=== PATIENT | male | born 1965 | race Caucasian/White ===

== ENCOUNTER → 2021-07-31 | Outpatient (CLI) | payer OTHER ==
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
--- NOTE | 2021-07-31 11:41 | Diagnostic Imaging Report ---
PROCEDURE: MR imaging cervical spine without contrast. TECHNIQUE: Multiplanar, multisequence MR imaging of the cervical spine was performed without contrast. INDICATION: Neck pain. COMPARISON: None. FINDINGS: Grade 1 anterolisthesis of C2 on C3. Alignment is otherwise normal and vertebral body heights preserved. Normal bone marrow signal. No abnormal signal in the cervical spinal cord. Visualized paravertebral soft tissues are unremarkable. Uncovertebral and facet arthropathy result in moderate right neural foraminal narrowing. Mild spinal canal narrowing. C3-C4: Disc osteophyte complex results in mild spinal canal and bilateral neural foraminal narrowing. C4-C5: Uncovertebral and facet arthropathy result in severe left neural foraminal narrowing. Tiny disc protrusion results in only mild spinal canal narrowing. C5-C6: Small central disc protrusion results in mild spinal canal narrowing. No neural foraminal narrowing. C6-C7: Annular disc bulge and facet arthropathy result in moderate bilateral neural foraminal narrowing. Mild spinal canal narrowing. C7-T1: No spinal canal or neural foraminal narrowing. IMPRESSION: 1. Spondylotic changes result in no high-grade spinal canal stenosis. No abnormal signal in the cervical spinal cord. 2. Scattered high-grade neural foraminal narrowing detailed above level by level. Dictated by: Dictated on workstation # [id number]
== END ==
LOC: RAD 08:00
PROVIDERS: ATTEND Physician Assistant
DX: S00.05XA Superficial foreign body of scalp, initial encounter (principal); M50.30 Other cervical disc degeneration, unspecified cervical region; G56.93 Unspecified mononeuropathy of bilateral upper limbs; M47.812 Spondylosis without myelopathy or radiculopathy, cervical region; M48.02 Spinal stenosis, cervical region; M25.78 Osteophyte, vertebrae; M50.222 Other cervical disc displacement at C5-C6 level; M43.12 Spondylolisthesis, cervical region
CPT/HCPCS: 70250; 72141

== ENCOUNTER 2022-05-10 19:57 | Inpatient (IN) | payer OTHER ==
[~2022-05-10] VITALS: Ht 180 cm; Wt 102.2 kg
[2022-05-10] MEDS ORDERED: TRAM50TA3 (20:05)
[2022-05-10] MEDS ORDERED: LISI1TAB44 (20:05)
[2022-05-10] MEDS ORDERED: NITROGLYCERIN 2% OINT 1 GM UNIT DOSE PACKET TOP STA (20:07)
[2022-05-10] MEDS ORDERED: FAMOTIDINE 20 MG (PEPCID) TABLET PO STA (20:07)
--- NOTE | 2022-05-10 20:11 | ED Chest Pain ---
General Chief Complaint: Chest Pain Stated Complaint: CHEST PAIN Source: patient Exam Limitations: no limitations History of Present Illness Date Seen by Provider: May 10, 2022 Time Seen by Provider: 20:00 Initial Comments 56-year-old male with past medical history of hypertension and smoking coming in due to chest pain. Started several days ago, has been intermittent, constant really since this morning. Right now it is very mild, 2 out of 10, burning sensation. Does not radiate anywhere. Mild dyspnea associated with it. Has had a cough as well which is new. Has had some times of chills and sweating with it. Denies any nausea, vomiting, weakness, numbness, abdominal pain, headache, vision changes, or any other concerns. Has never really had pain like this before. Denies any cardiac history. Denies any history of DVT or PE, lowe r extremity swelling or pain, hormone use, recent surgery, recent long travel Allergies and Home Medications Allergies Coded Allergies: No Known Drug Allergies (Unverified , 05/10/22) Patient Home Medication List Home Medication List Reviewed: Yes Lisinopril/Hydrochlorothiazide (Lisinopril-Hctz 10-12.5 mg Tab) 10 Mg-12.5 Mg Tablet, (Reported) Entered as Reported by: ARCHIE OSORIO on 05/10/222004 Last Action: New Order Tramadol HCl (Tramadol HCl) 50 Mg Tablet, (Reported) Entered as Reported by: ARCHIE OSORIO on 05/10/222004 Last Action: New Order Review of Systems Review of Systems Constitutional: No fever EENTM: No Symptoms Reported Respiratory: See HPI Cardiovascular: See HPI Gastrointestinal: No Symptoms Reported Genitourinary: No Symptoms Reported Musculoskeletal: no symptoms reported Skin: no symptoms reported Psychiatric/Neurological: No Symptoms Reported Endocrine: No Symptoms Reported Hematologic/Lymphatic: No Symptoms Reported All Other Systems Reviewed Negative Unless Noted: Yes Past Tavxcxm-Aslrvb-Bkcjzt Hx Patient Social History Tobacco Use?: Yes Substance use?: No Alcohol Use?: No Pt feels they are or have been: No Immunizations Up To Date First/Initial COVID19 Vaccinat: x2 Past Medical History Surgery/Hospitalization HX: htn Surgeries: No Physical Exam Vital Signs Vital Signs - First Documented 05/10/22 20:06 Temp 36.4 Pulse 73 Resp 16 B/P (MAP) 170/122 (138) Pulse Ox 100 O2 Delivery Room Air Capillary Refill : Height, Weight, BMI Height: '" Weight: lbs. oz. kg; BMI Method: General Appearance: No Apparent Distress, WD/WN HEENT: PERRL/EOMI, Normal ENT Inspection, Pharynx Normal Neck: Full Range of Motion, Normal Inspection, Non Tender, Supple Respiratory: Chest Non Tender, Lungs Clear, Normal Breath Sounds, No Accessory Muscle Use, No Respiratory Distress Cardiovascular: Regular Rate, Rhythm, No Edema, Normal Peripheral Pulses Gastrointestinal: Normal Bowel Sounds, Non Tender, Soft; No Distended, No Guarding Extremity: Normal Capillary Refill, Normal Inspection, Normal Range of Motion, Non Tender, No Calf Tenderness, No Pedal Edema Neurologic/Psychiatric: Alert, No Motor/Sensory Deficits, Normal Mood/Affect Skin: Normal Color, Warm/Dry Lymphatic: No Adenopathy Progress/Results/Core Measures Results/Orders Lab Results Laboratory Tests Test 05/10/22 20:15 Range/Units White Blood Count 9.9 4.3-11.0 10^3/uL Red Blood Count 5.75 H 4.30-5.52 10^6/uL Hemoglobin 17.3 13.3-17.7 g/dL Hematocrit 50 40-54 % Mean Corpuscular Volume 87 80-99 fL Mean Corpuscular Hemoglobin 30 25-34 pg Mean Corpuscular Hemoglobin Concent 35 32-36 g/dL Red Cell Distribution Width 12.7 10.0-14.5 % Platelet Count 286 130-400 10^3/uL Mean Platelet Volume 11.2 9.0-12.2 fL Immature Granulocyte % (Auto) 1 % Neutrophils (%) (Auto) 55 42-75 % Lymphocytes (%) (Auto) 29 12-44 % Monocytes (%) (Auto) 11 0-12 % Eosinophils (%) (Auto) 4 0-10 % Basophils (%) (Auto) 1 0-10 % Neutrophils # (Auto) 5.4 1.8-7.8 10^3/uL Lymphocytes # (Auto) 2.9 1.0-4.0 10^3/uL Monocytes # (Auto) 1.1 H 0.0-1.0 10^3/uL Eosinophils # (Auto) 0.4 H 0.0-0.3 10^3/uL Basophils # (Auto) 0.1 0.0-0.1 10^3/uL Immature Granulocyte # (Auto) 0.1 0.0-0.1 10^3/uL Prothrombin Time 12.3 12.2-14.7 SEC INR Comment 0.9 0.8-1.4 Activated Partial Thromboplast Time 31 24-35 SEC Sodium Level 138 135-145 MMOL/L Potassium Level 4.4 3.6-5.0 MMOL/L Chloride Level 103 98-107 MMOL/L Carbon Dioxide Level 25 21-32 MMOL/L Anion Gap 10 5-14 MMOL/L Blood Urea Nitrogen 18 7-18 MG/DL Creatinine 1.21 0.60-1.30 MG/DL Estimat Glomerular Filtration Rate 69 BUN/Creatinine Ratio 15 Glucose Level 123 H 70-105 MG/DL Calcium Level 9.7 8.5-10.1 MG/DL Corrected Calcium 9.4 8.5-10.1 MG/DL Magnesium Level 2.0 1.6-2.4 MG/DL Total Bilirubin 0.4 0.1-1.0 MG/DL Aspartate Amino Transf (AST/SGOT) 30 5-34 U/L Alanine Aminotransferase (ALT/SGPT) 28 0-55 U/L Alkaline Phosphatase 76 40-136 U/L Troponin I 0.288 H <0.028 NG/ML Total Protein 8.0 6.4-8.2 GM/DL Albumin 4.4 3.2-4.5 GM/DL Lipase 34 8-78 U/L Influenza Type A (RT-PCR) Not Detected Not Detecte Influenza Type B (RT-PCR) Not Detected Not Detecte SARS-CoV-2 RNA (RT-PCR) Not Detected Not Detecte My Orders Orders - SHARON ESTEVEZ MD Ekg Tracing (05/10/22 20:01) Cbc With Automated Diff (05/10/22 20:07) Magnesium (05/10/22 20:07) Chest 1 View, Ap/Pa Only (05/10/22 20:07) Ekg Tracing (05/10/22 20:07) Comprehensive Metabolic Panel (05/10/22 20:07) Protime With Inr (05/10/22 20:07) Partial Thromboplastin Time (05/10/22 20:07) Monitor-Rhythm Ecg Trace Only (05/10/22 20:07) Ed Iv/Invasive Line Start (05/10/22 20:07) Lipase (05/10/22 20:07) Troponin I [place] (05/10/22 20:07) Nitroglycerin Ointment (Nitrobid Ointme (05/10/22 20:07) Aspirin Chewable Tablet (Baby Aspirin Ch (05/10/22 20:15) Lidocaine 2% Viscous 15 Ml (Xylocaine Vi (05/10/22 20:15) Famotidine Tablet (Pepcid Tablet) (05/10/22 20:07) Antacid Suspension (Mylanta Suspension (05/10/22 20:15) Influenza A And B By Pcr (05/10/22 20:08) Covid 19 Inhouse Test (05/10/22 20:08) Metoprolol Succinate (Xl) Tab (Toprol Xl (05/10/22 21:01) Clopidogrel Tablet (Plavix Tablet) (05/10/22 21:15) Enoxaparin Injection (Lovenox Injection) (05/10/22 21:15) Ed Admission (Communication) (05/10/22 21:05) Medications Given in ED Current Medications Medications Dose Ordered Sig/Fátima Route Start Time Stop Time Status Last Admin Dose Admin Al Hydrox/Mg Hydrox/Simethicone 30 ml ONCE ONCE PO 05/10/22 20:15 05/10/22 20:16 DC 05/10/22 20:17 30 ML Aspirin 243 mg ONCE ONCE PO 05/10/22 20:15 05/10/22 20:16 DC 05/10/22 20:17 243 MG Lidocaine HCl 15 ml ONCE ONCE PO 05/10/22 20:15 05/10/22 20:16 DC 05/10/22 20:17 15 ML Vital Signs/I&O 05/10/22 20:06 Temp 36.4 Pulse 73 Resp 16 B/P (MAP) 170/122 (138) Pulse Ox 100 O2 Delivery Room Air Progress Progress Note : Progress Note 56-year-old male with above history coming in due to chest pain. ABCs were intact and vitals are stable on presentation although he is hypertensive. EKG with no acute ischemic changes. An IV was placed and basic labs were obtained including cardiac biomarkers. Chest x-ray with no acute abnormalities. He was given Nitropaste for his pain as well as aspirin. Blood pressure did come down some, and his pain went from a 2 out of 10 down to a 1 out of 10. Troponin positive at 0.28 concerning for an NSTEMI. I contacted Dr. Albarran, the heel breaster on-call and have added medications to the patient's regimen per his recommendations. I then contacted Dr. Santoyo, who admit the patient under inpatient status to the cardiac stepdown for further evaluation management Initial ECG Impression Date: May 10, 2022 Initial ECG Impression Time: 20:05 Initial ECG Rate: 68 Initial ECG Rhythm: Normal Sinus Comment Narrow QRS, normal axis, no significant ST changes or T wave abnormalities Diagnostic Imaging Diagonstic Imaging: Xray (chest) Comments [facility], [place] NAME: BELLA NOEL [facility] REC#: [id number] PT STATUS: REG ER : 1965 PHYSICIAN: SHARON ESTEVEZ MD ADMIT DATE: 05/10/22/ER Draft Date of Exam:05/10/22 CHEST 1 VIEW, AP/PA ONLY INDICATION: Chest pain. COMPARISON: None available. TECHNIQUE: Single frontal radiograph of the chest dated 05/10/2022. FINDINGS: The cardiac silhouette is within normal limits in size. No significant pulmonary vascular congestion. Calcified granuloma overlying the left midlung. The lungs are otherwise clear. No pleural effusion. No pneumothorax. No acute osseous abnormality. IMPRESSION: No acute cardiopulmonary abnormality. Dictated on workstation # [id number] Dict: 05/10/222041 Trans: 05/10/222043 [id number] Interpreted by: ARISTEO MARTINEZ MD Electronically signed by: Departure Impression Primary Impression: NSTEMI (non-ST elevated myocardial infarction) Disposition: ADMITTED INPATIENT Condition: Stable Admissions Decision to Admit Reason: Admit from ER (General) Decision to Admit/Date: May 10, 2022 Time/Decision to Admit Time: 21:00 SHARON ESTEVEZ MD May 10, 2022 20:11
[2022-05-10] MEDS ORDERED: ASPIRIN 81 MG CHEW (CHILDREN'S ASA) PO ONE (20:15)
[2022-05-10] MEDS ORDERED: LIDOCAINE 2% VISCOUS 15 ML UDC PO ONE (20:15)
[2022-05-10] MEDS ORDERED: ANTACID SUSP 30 ML UDC (MYLANTA) PO ONE (20:15)
[2022-05-10 20:24] LABS: BASOPHILS # (AUTO) 0.1 10^3/uL (0.0-0.1); BASOPHILS % (AUTO) 1 % (0-10); EOSINOPHILS # (AUTO) 0.4 10^3/uL (0.0-0.3); EOSINOPHILS % (AUTO) 4 % (0-10); HEMATOCRIT 50 % (40-54); HEMOGLOBIN 17.3 g/dL (13.3-17.7); LYMPHOCYTES # (AUTO) 2.9 10^3/uL (1.0-4.0); LYMPHOCYTES % (AUTO) 29 % (12-44); MEAN CORPUSCULAR HEMOGLOBIN 30 pg (25-34); MEAN CORPUSCULAR HGB CONC 35 g/dL (32-36); MEAN CORPUSCULAR VOLUME 87 fL (80-99); MEAN PLATELET VOLUME 11.2 fL (9.0-12.2); MONOCYTES # (AUTO) 1.1 10^3/uL (0.0-1.0); MONOCYTES % (AUTO) 11 % (0-12); NEUTROPHILS # (AUTO) 5.4 10^3/uL (1.8-7.8); NEUTROPHILS % (AUTO) 55 % (42-75); PLATELET COUNT 286 10^3/uL (130-400); WHITE BLOOD COUNT 9.9 10^3/uL (4.3-11.0)
[2022-05-10 20:35] LABS: INR 0.9 (0.8-1.4); PROTHROMBIN TIME PATIENT 12.3 SEC (12.2-14.7)
--- NOTE | 2022-05-10 20:44 | Diagnostic Imaging Report ---
INDICATION: Chest pain. COMPARISON: None available. TECHNIQUE: Single frontal radiograph of the chest dated 05/10/2022. FINDINGS: The cardiac silhouette is within normal limits in size. No significant pulmonary vascular congestion. Calcified granuloma overlying the left midlung. The lungs are otherwise clear. No pleural effusion. No pneumothorax. No acute osseous abnormality. IMPRESSION: No acute cardiopulmonary abnormality. Dictated by: Dictated on workstation # [id number]
[2022-05-10 20:51] LABS: ALBUMIN 4.4 GM/DL (3.2-4.5); BILIRUBIN,TOTAL 0.4 MG/DL (0.1-1.0); CALCIUM 9.7 MG/DL (8.5-10.1); CREATININE SERUM 1.21 MG/DL (0.60-1.30); POTASSIUM 4.4 MMOL/L (3.6-5.0)
[2022-05-10] MEDS ORDERED: meTOproloL SUCCINATE 50 MG (TOPROL XL) TAB PO STA (21:01)
[2022-05-10] MEDS ORDERED: CLOPIDOGREL 300 MG (PLAVIX) TABLET PO ONE (21:15)
[2022-05-10] MEDS ORDERED: ENOXAPARIN 100 MG/1 ML (LOVENOX) SYR SC ONE (21:15)
[2022-05-10] MEDS ORDERED: ONDANSETRON 4 MG (ZOFRAN) ORAL DISSOLVE TAB PO PRN (21:45)
[2022-05-10] MEDS ORDERED: ALPRAZolam 1 MG (XANAX) TAB PO PRN (21:45)
[2022-05-10] MEDS ORDERED: ANTACID SUSP 30 ML UDC (MYLANTA) PO PRN (21:45)
[2022-05-10] MEDS ORDERED: LACTULOSE SYRUP 10GM/15ML (ENULOSE) 30ML UDC PO PRN (21:45)
[2022-05-10] MEDS ORDERED: ONDANSETRON 4 MG/2 ML (SDV) Z0FRAN IV PRN (21:45)
[2022-05-10] MEDS ORDERED: MILK OF MAGNESIA 400 MG/5 ML 30 ML UDC PO PRN (21:45)
[2022-05-10] MEDS ORDERED: morphine INJ 4 MG/ML 1 ML (VIAL/SYRINGE) IV PRN (21:45)
[2022-05-10] MEDS ORDERED: MELATONIN 3 MG TABLET PO PRN (21:45)
[2022-05-10] MEDS ORDERED: diphenhydrAMINE 50 MG/ML INJ (BENADRYL) IVP PRN (21:45)
[2022-05-10] MEDS ORDERED: BISACODYL 10 MG SUPP (DULCOLAX) PR PRN (21:45)
[2022-05-10] MEDS ORDERED: ACETAMINOPHEN 325 MG TABLET PO PRN (21:45)
[2022-05-10] MEDS ORDERED: diphenhydrAMINE 25 MG TAB (BENADRYL) PO PRN (21:45)
[2022-05-10] MEDS ORDERED: CALCIUM CARBONATE 500 MG (TUMS) TAB.CHEW PO PRN (21:45)
[2022-05-10] MEDS ORDERED: polyethylene glycoL POWDER 17 GM (MIRALAX) PACK PO PRN (21:45)
[2022-05-10 21:55] VITALS: BP 144/93
[2022-05-10] MEDS: NITROGLYCERIN 2% OINT 1 GM UNIT DOSE PACKET TOP SCH (23:58)
[2022-05-11 00:30] VITALS: BP 123/88
[2022-05-11 03:28] VITALS: BP 122/80
[2022-05-11] MEDS: NITROGLYCERIN 2% OINT 1 GM UNIT DOSE PACKET TOP SCH (05:50)
[2022-05-11 06:01] LABS: BASOPHILS # (AUTO) 0.1 10^3/uL (0.0-0.1); BASOPHILS % (AUTO) 1 % (0-10); EOSINOPHILS # (AUTO) 0.3 10^3/uL (0.0-0.3); EOSINOPHILS % (AUTO) 3 % (0-10); HEMATOCRIT 47 % (40-54); HEMOGLOBIN 16.4 g/dL (13.3-17.7); LYMPHOCYTES # (AUTO) 3.2 10^3/uL (1.0-4.0); LYMPHOCYTES % (AUTO) 33 % (12-44); MEAN CORPUSCULAR HEMOGLOBIN 30 pg (25-34); MEAN CORPUSCULAR HGB CONC 35 g/dL (32-36); MEAN CORPUSCULAR VOLUME 86 fL (80-99); MEAN PLATELET VOLUME 11.5 fL (9.0-12.2); MONOCYTES # (AUTO) 1.1 10^3/uL (0.0-1.0); MONOCYTES % (AUTO) 11 % (0-12); NEUTROPHILS % (AUTO) 51 % (42-75); PLATELET COUNT 254 10^3/uL (130-400); WHITE BLOOD COUNT 9.7 10^3/uL (4.3-11.0)
[2022-05-11 06:23] LABS: BILIRUBIN,TOTAL 0.4 MG/DL (0.1-1.0); CALCIUM 9.3 MG/DL (8.5-10.1); CREATININE SERUM 0.99 MG/DL (0.60-1.30); POTASSIUM 3.7 MMOL/L (3.6-5.0)
--- NOTE | 2022-05-11 06:38 | History & Physical-Hospitalist ---
History of Present Illness HPI/Chief Complaint Chief complaint: Chest pain with elevated troponin HPI: This is a 56-year-old male who has a past medical history chronic pain and smoking who presented to the ER with chest pressure. Troponin was elevated consistent with NSTEMI. Patient underwent close observation on telemetry overnight. Cardiology consult occurred and he will undergo a cardiac catheterization. Source: patient Exam Limitations: no limitations Date Seen 05/11/22 Time Seen by a Provider: 10:00 Attending Physician PCP Admitting Physician: Maeve Santoyo DO Attending Physician: Maeve Santoyo DO Referring Physician Date of Admission May 10, 2022 at 21:06 Home Medications & Allergies Home Medications Reviewed patient Home Medication Reconciliation performed by pharmacy medication reconciliations floor technician and/or nursing. Patients Allergies have been reviewed. Allergies Allergies Coded Allergies No Known Drug Allergies (Qmxtlaaspt33/2/22) Past Mxospwy-Ofzrju-Efzluz Hx Patient Social History Marrital Status: Tobacco Use?: Yes Tobacco type used: Cigarettes Smoking Status: Current Everyday Smoker Substance use?: No Alcohol Use?: No Pt feels they are or have been: No Immunizations Up To Date First/Initial COVID19 Vaccinat: x2 Tetanus Booster (TDap): More Than 5 Years Current Status Advance Directives: No Communicates: Verbally Primary Language: Faroese Preferred Spoken Language: Faroese Is interpretation needed?: No Sensory deficits: Vision impairment Implanted or Applied Medical D: None Review of Systems Constitutional: see HPI Cardiovascular: chest pain Physical Exam Physical Exam Vital Signs Vital Signs - First Documented 05/10/22 05/10/22 05/11/22 20:06 21:58 11:46 Temp 36.4 Pulse 73 Resp 16 B/P (MAP) 170/122 (138) Pulse Ox 100 O2 Delivery Room Air O2 Flow Rate 0.00 FiO2 21 Capillary Refill : Less Than 3 Seconds Height, Weight, BMI Height: '" Weight: lbs. oz. kg; 31.38 BMI Method: General Appearance: No Apparent Distress Eyes: Right Eye Normal Inspection, Right Eye PERRL HEENT: PERRL/EOMI, TMs Normal, Normal ENT Inspection, Pharynx Normal, Moist Mucous Membranes Neck: Full Range of Motion, Normal Inspection, Non Tender Respiratory: Chest Non Tender, Lungs Clear, Normal Breath Sounds, No Accessory Muscle Use, No Respiratory Distress Cardiovascular: Regular Rate, Rhythm, No Edema, No Gallop, No JVD, No Murmur, Normal Peripheral Pulses Gastrointestinal: Normal Bowel Sounds, No Organomegaly, No Pulsatile Mass, Non Tender, Soft Back: Normal Inspection, No CVA Tenderness, No Vertebral Tenderness Extremity: Normal Capillary Refill, Normal Inspection, Normal Range of Motion, Non Tender, No Calf Tenderness, No Pedal Edema Neurologic/Psychiatric: Alert, Oriented x3, No Motor/Sensory Deficits, Normal Mood/Affect Skin: Normal Color, Warm/Dry Lymphatic: No Adenopathy Results Results/Procedures Labs Laboratory Tests 05/10/22 20:15 05/11/22 05:07 Patient resulted labs reviewed. Assessment/Plan Admission Diagnosis Assessment: NSTEMI Smoker Hyperlipidemia Chronic pain syndrome Plan: Cardiology consult appreciated Cardiac cath Admission Status: Inpatient Order (span 2 midnights) Reason for Inpatient Admission: NSTEMI Diagnosis/Problems Diagnosis/Problems (1) NSTEMI (non-ST elevated myocardial infarction) MAEVE SANTOYO DO May 11, 2022 06:38
[2022-05-11 07:45] VITALS: BP 129/90
[2022-05-11] MEDS ORDERED: FLU QUADRIvalent (6 months+) 60 mcg/0.5 ml 2022-23 (Fluzone) IM ONE (08:00)
[2022-05-11] MEDS: meTOproloL SUCCINATE 50 MG (TOPROL XL) TAB PO SCH (08:04)
[2022-05-11] MEDS: ASPIRIN 81 MG CHEW (CHILDREN'S ASA) PO SCH (08:05)
[2022-05-11] MEDS: CLOPIDOGREL 75 MG (PLAVIX) TABLET PO SCH (08:05)
[2022-05-11] MEDS: DOCUSATE SODIUM 100 MG (COLACE) CAP PO SCH ×2 (08:06→20:23)
[2022-05-11] MEDS: SENNOSIDES 8.6 MG (SENOKOT) TAB PO SCH ×2 (08:06→20:23)
[2022-05-11] MEDS ORDERED: ENOXAPARIN 100 MG/1 ML (LOVENOX) SYR SC SCH (09:00)
--- NOTE | 2022-05-11 11:56 | Consultation-Cardiology ---
HPI-Cardiology Cardiology Consultation: Date of Consultation 05/11/22 Time Seen by a Provider: 09:50 Date of Admission Attending Physician Admitting Physician Admitting Physician: Maeve Santoyo DO Attending Physician: Maeve Santoyo DO Consulting Physician MAGALY ALFORD MD, MA, FACP, FACC, FSCAI, CCDS HPI: Chief Complaint: Chest pain 56 yo man with new onset of chest pain 1st episode: 05/09/22, lower midsternal, moderate in intensity, pressure-like, never experienced before, worse with exertion, improved with rest, lasted a few hours, radiated to both arms, was not associated with other symptoms 2nd episode: 05/10/22, similar to the 1st episode except that it was more intense, improved with treatment for angina in the ER No palp or syncope or swelling No shortness of breath with exertion prior to onset of above-described symptoms No n/v/d Review of Systems-Cardiology Review of Systems Constitutional: malaise, tiredness; No weight loss, No weight gain Eyes: No vision change Ears/Nose/Throat: No ear discharge, No nasal drainage, No recent hearing loss Respiratory: As described under HPI Cardiovascular: As described under HPI Gastrointestinal: No diarrhea, No nausea, No vomiting Genitourinary: No dysuria, No hematuria, No urine frequency changes Musculoskeletal: No joint pain Skin: No rash, No ulcerations Psychiatric/Neurological: No seizure, No focal weakness, No syncope Hematologic: No bleeding abnormalities All Other Systems Reviewed Negative Unless Noted: Yes RXP-Eyacqn-Pmnxra Hx Patient Social History Smoking Status: Current Everyday Smoker Have you traveled recently?: No Alcohol Use?: No Pt feels they are or have been: No Tobacco type used: Cigarettes Past Medical History PMH As described under Assessment. Family Medical History Family Medical History: Father had a heart attack in his 50s, a brother (around patient's age) had coronary stenting Allergies and Home Medications Allergies Coded Allergies: No Known Drug Allergies (Unverified , 05/10/22) Patient Home Medication List Home Medication List Reviewed: Yes Lisinopril/Hydrochlorothiazide (Lisinopril-Hctz 10-12.5 mg Tab) 10 Mg-12.5 Mg Tablet, (Reported) Entered as Reported by: ARCHIE OSORIO on 05/10/222004 Last Action: New Order Tramadol HCl (Tramadol HCl) 50 Mg Tablet, (Reported) Entered as Reported by: ARCHIE OSORIO on 05/10/222004 Last Action: New Order Physical Exam-Cardiology Physical Exam Vital Signs/I&O 05/11/22 05/11/22 05/11/22 05/11/22 00:30 01:00 03:28 07:00 Temp 36.0 36.0 Pulse 68 60 63 55 Resp 16 16 B/P (MAP) 123/88 (100) 122/80 (94) Pulse Ox 95 95 O2 Delivery Room Air Room Air 05/11/22 05/11/22 05/11/22 07:45 08:00 11:46 Temp 36.3 Pulse 56 Resp 14 B/P (MAP) 129/90 (103) Pulse Ox 95 95 95 O2 Delivery Room Air Room Air Room Air O2 Flow Rate 0.00 05/10/22 23:59 Intake Total 0 ml Output Total 0 ml Balance 0 ml Capillary Refill : Less Than 3 Seconds Constitutional: AAO x 3, well-developed, well-nourished HEENT: EOMI, hearing is well preserved; No xanthelasmas are seen Neck: carotid pulses are 2 + bilaterally, with good upstrokes Respiratory: No accessory muscle use; other (good, bilateral air entry) Cardiovascular: regular rate-rhythm, S1 and S2, systolic murmur (soft JEFF at card base) Gastrointestinal: No tender; soft; No guarding, No rebound; audible bowel sounds Extremities: No clubbing, No cyanosis, No significant edema Neurologic/Psychiatric: oriented x 3, other (mvoes all limbs equally) Skin: normal color, warm/dry; No rash on exposed areas, No ulcerations on exposed areas Data Review Labs Laboratory Tests 05/10/22 20:15: White Blood Count 9.9, Red Blood Count 5.75H, Hemoglobin 17.3, Hematocrit 50, Mean Corpuscular Volume 87, Mean Corpuscular Hemoglobin 30, Mean Corpuscular Hemoglobin Concent 35, Red Cell Distribution Width 12.7, Platelet Count 286, Mean Platelet Volume 11.2, Immature Granulocyte % (Auto) 1, Neutrophils (%) (Auto) 55, Lymphocytes (%) (Auto) 29, Monocytes (%) (Auto) 11, Eosinophils (%) (Auto) 4, Basophils (%) (Auto) 1, Neutrophils # (Auto) 5.4, Lymphocytes # (Auto) 2.9, Monocytes # (Auto) 1.1H, Eosinophils # (Auto) 0.4H, Basophils # (Auto) 0.1, Immature Granulocyte # (Auto) 0.1, Prothrombin Time 12.3, INR Comment 0.9, Activated Partial Thromboplast Time 31, Sodium Level 138, Potassium Level 4.4, Chloride Level 103, Carbon Dioxide Level 25, Anion Gap 10, Blood Urea Nitrogen 18, Creatinine 1.21, Estimat Glomerular Filtration Rate 69, BUN/Creatinine Ratio 15, Glucose Level 123H, Calcium Level 9.7, Corrected Calcium 9.4, Magnesium Level 2.0, Total Bilirubin 0.4, Aspartate Amino Transf (AST/SGOT) 30, Alanine Aminotransferase (ALT/SGPT) 28, Alkaline Phosphatase 76, Troponin I 0.288H, Total Protein 8.0, Albumin 4.4, Lipase 34, Influenza Type A (RT-PCR) Not Detected, Influenza Type B (RT-PCR) Not Detected, SARS-CoV-2 RNA (RT-PCR) Not Detected 05/11/22 05:07: White Blood Count 9.7, Red Blood Count 5.50, Hemoglobin 16.4, Hematocrit 47, Mean Corpuscular Volume 86, Mean Corpuscular Hemoglobin 30, Mean Corpuscular Hemoglobin Concent 35, Red Cell Distribution Width 12.8, Platelet Count 254, Mean Platelet Volume 11.5, Immature Granulocyte % (Auto) 1, Neutrophils (%) (A uto) 51, Lymphocytes (%) (Auto) 33, Monocytes (%) (Auto) 11, Eosinophils (%) (Auto) 3, Basophils (%) (Auto) 1, Neutrophils # (Auto) 5.0, Lymphocytes # (Auto) 3.2, Monocytes # (Auto) 1.1H, Eosinophils # (Auto) 0.3, Basophils # (Auto) 0.1, Immature Granulocyte # (Auto) 0.1, Sodium Level 140, Potassium Level 3.7, Chloride Level 107, Carbon Dioxide Level 21, Anion Gap 12, Blood Urea Nitrogen 21H, Creatinine 0.99, Estimat Glomerular Filtration Rate 88, BUN/Creatinine Ratio 21, Glucose Level 98, Calcium Level 9.3, Corrected Calcium 9.3, Total Bilirubin 0.4, Aspartate Amino Transf (AST/SGOT) 25, Alanine Aminotransferase (ALT/SGPT) 28, Alkaline Phosphatase 63, Troponin I 0.235H, Total Protein 7.0, Albumin 4.0, Triglycerides Level 273H, Cholesterol Level 227H, LDL Cholesterol Direct 157H, VLDL Cholesterol 55H, HDL Cholesterol 28L Laboratory Tests 05/10/22 20:15 05/11/22 05:07 A/P-Cardiology Assessment/Admission Diagnosis Ac NSTEMI and unstable angina Chronic smoker of cigarettes Strong fam h/o premature CAD Discussion and Recomendations * Treat with DAPT and beta-pa * Card cath advised. I discussed the rationale, procedure, risks, benefits, potential complications, and alternatives of card cath and possible ad hoc coronary intervention with him, and answered questions. He understand and wishes to proceed * Advised to quit smoking immediately and completely * Further recs based on cath findings MAGALY ALFORD MD FACP FAC CCDS May 11, 2022 11:56
[2022-05-11 12:00] VITALS: BP 122/81
[2022-05-11] MEDS ORDERED: MIDAZOLAM 5 MG/5 ML (VERSED) VIAL ONE (12:45)
[2022-05-11] MEDS ORDERED: fentaNYL INJ 100 MCG/2 ML AMP ONE (12:45)
[2022-05-11] MEDS ORDERED: LIDOCAINE 1% INJ 30 ML (XYLOCAINE) VIAL ONE (12:45)
[2022-05-11] MEDS ORDERED: HEParin (CATH LAB) 2,000 ML IV ONE (12:46)
[2022-05-11] MEDS ORDERED: NS IV 1000 ML 1,000 ML ONE (12:46)
[2022-05-11] MEDS ORDERED: HEParin 1000 UNIT/ML (10ML VIAL) FOR BOLUS ONE (13:42)
[2022-05-11] MEDS ORDERED: EPTIFIBATIDE BOLUS 20 ML IV ONE (13:43)
[2022-05-11] MEDS ORDERED: NITRO DRIP 25000 MCG/D5W 250 ML IV ONE (14:00)
[2022-05-11] MEDS ORDERED: morphine INJ 4 MG/ML 1 ML (VIAL/SYRINGE) ONE (14:13)
[2022-05-11] MEDS ORDERED: CLOPIDOGREL 300 MG (PLAVIX) TABLET PO ONE (14:35)
[2022-05-11] MEDS ORDERED: ASPIRIN 81 MG CHEW (CHILDREN'S ASA) ONE (14:35)
[2022-05-11] MEDS ORDERED: PATIENT MAY USE OWN MEDS, ALL PO SCH (15:15)
[2022-05-11 16:45] VITALS: BP 136/93
[2022-05-11] MEDS: NS IV 1000 ML 1,000 ML IV SCH (17:23)
[2022-05-11 20:00] VITALS: BP 156/99
[2022-05-12] VITALS: BP 148/95
[2022-05-12 02:35] VITALS: BP 148/95
[2022-05-12] MEDS: NS IV 1000 ML 1,000 ML IV SCH ×2 (03:56→12:11)
[2022-05-12 04:00] VITALS: BP 167/102
[2022-05-12 05:31] LABS: BASOPHILS # (AUTO) 0.1 10^3/uL (0.0-0.1); BASOPHILS % (AUTO) 1 % (0-10); EOSINOPHILS # (AUTO) 0.2 10^3/uL (0.0-0.3); EOSINOPHILS % (AUTO) 2 % (0-10); HEMATOCRIT 46 % (40-54); HEMOGLOBIN 15.6 g/dL (13.3-17.7); LYMPHOCYTES # (AUTO) 2.5 10^3/uL (1.0-4.0); LYMPHOCYTES % (AUTO) 20 % (12-44); MEAN CORPUSCULAR HEMOGLOBIN 30 pg (25-34); MEAN CORPUSCULAR HGB CONC 34 g/dL (32-36); MEAN CORPUSCULAR VOLUME 88 fL (80-99); MEAN PLATELET VOLUME 11.5 fL (9.0-12.2); MONOCYTES # (AUTO) 1.3 10^3/uL (0.0-1.0); MONOCYTES % (AUTO) 10 % (0-12); NEUTROPHILS # (AUTO) 8.6 10^3/uL (1.8-7.8); NEUTROPHILS % (AUTO) 67 % (42-75); PLATELET COUNT 224 10^3/uL (130-400); WHITE BLOOD COUNT 12.7 10^3/uL (4.3-11.0)
[2022-05-12 05:51] LABS: ALBUMIN 3.7 GM/DL (3.2-4.5); BILIRUBIN,TOTAL 0.7 MG/DL (0.1-1.0); CREATININE SERUM 0.95 MG/DL (0.60-1.30); POTASSIUM 3.9 MMOL/L (3.6-5.0); TOTAL PROTEIN 6.6 GM/DL (6.4-8.2)
--- NOTE | 2022-05-12 06:00 | Progress Note - Hospitalist ---
Subjective HPI/CC On Admission Date Seen by Provider: May 12, 2022 Time Seen by Provider: 11:30 Chief complaint: Chest pain with elevated troponin HPI: This is a 56-year-old male who has a past medical history chronic pain and smoking who presented to the ER with chest pressure. Troponin was elevated consistent with NSTEMI. Patient underwent close observation on telemetry overnight. Cardiology consult occurred and he will undergo a cardiac catheterization. Review of Systems Pulmonary: Dyspnea Cardiovascular: Chest Pain Objective Exam Vital Signs Vital Signs Date Time Temp Pulse Resp B/P (MAP) Pulse Ox O2 Delivery O2 Flow Rate FiO2 05/12/22 08:00 Room Air 05/12/22 07:57 36.2 76 14 146/93 (110) 97 05/11/22 16:45 0.00 0.00 05/10/22 21:58 21 Capillary Refill : Less Than 3 Seconds General Appearance: No Apparent Distress, WD/WN, Chronically ill Respiratory: Lungs Clear, Normal Breath Sounds Cardiovascular: Regular Rate, Rhythm Neurologic/Psychiatric: Alert, Oriented x3, No Motor/Sensory Deficits, Normal Mood/Affect Results/Procedures Lab Laboratory Tests 05/12/22 05:01 Patient resulted labs reviewed. Assessment/Plan Assessment and Plan Assess & Plan/Chief Complaint Assessment: NSTEMI Smoker Hyperlipidemia Chronic pain syndrome Plan: Cardiology consult appreciated Cardiac cath Diagnosis/Problems Diagnosis/Problems (1) NSTEMI (non-ST elevated myocardial infarction) NEHA HOGUE DO May 12, 2022 06:00
[2022-05-12 07:57] VITALS: BP 146/93
[2022-05-12] MEDS: DOCUSATE SODIUM 100 MG (COLACE) CAP PO SCH (09:00)
[2022-05-12] MEDS: ASPIRIN 81 MG CHEW (CHILDREN'S ASA) PO SCH (09:00)
[2022-05-12] MEDS: CLOPIDOGREL 75 MG (PLAVIX) TABLET PO SCH (09:00)
[2022-05-12] MEDS: SENNOSIDES 8.6 MG (SENOKOT) TAB PO SCH (09:00)
[2022-05-12 12:00] VITALS: BP 164/84
[2022-05-12] MEDS: meTOproloL SUCCINATE 50 MG (TOPROL XL) TAB PO SCH (12:13)
[2022-05-12] MEDS ORDERED: ATOR80TA76 PO (12:15)
[2022-05-12] MEDS ORDERED: TRAM50TA3 PO (12:15)
[2022-05-12] MEDS ORDERED: ASPI81TA64 PO (12:15)
[2022-05-12] MEDS ORDERED: CLOP75TA28 PO (12:15)
[2022-05-12] MEDS ORDERED: METO50TA7 PO (12:15)
--- NOTE | 2022-05-12 12:17 | Discharge Summary ---
Discharge Summary Hospital Course Was the Problem List Reviewed?: Yes Problems/Dx: (1) NSTEMI (non-ST elevated myocardial infarction) Hospital Course Date of Admission: May 10, 2022 at 21:06 Admission Diagnosis : Family Physician/Provider: Date of Discharge: 05/12/22 Discharge Diagnosis: [ ] Hospital Course: admitted for NSTEMI and underwent cath with 3 stents placed. Meds initiated per protocol. Labs and Pending Lab Test: Laboratory Tests 05/12/22 05:01: White Blood Count 12.7H, Red Blood Count 5.27, Hemoglobin 15.6, Hematocrit 46, Mean Corpuscular Volume 88, Mean Corpuscular Hemoglobin 30, Mean Corpuscular Hemoglobin Concent 34, Red Cell Distribution Width 13.0, Platelet Count 224, M miguel Platelet Volume 11.5, Immature Granulocyte % (Auto) 1, Neutrophils (%) (Auto) 67, Lymphocytes (%) (Auto) 20, Monocytes (%) (Auto) 10, Eosinophils (%) (Auto) 2, Basophils (%) (Auto) 1, Neutrophils # (Auto) 8.6H, Lymphocytes # (Auto) 2.5, Monocytes # (Auto) 1.3H, Eosinophils # (Auto) 0.2, Basophils # (Auto) 0.1, Immature Granulocyte # (Auto) 0.1, Sodium Level 139, Potassium Level 3.9, Chloride Level 111H, Carbon Dioxide Level 19L, Anion Gap 9, Blood Urea Nitrogen 19H, Creatinine 0.95, Estimat Glomerular Filtration Rate 93, BUN/ Creatinine Ratio 20, Glucose Level 93, Calcium Level 9.0, Corrected Calcium 9.2, Total Bilirubin 0.7, Aspartate Amino Transf (AST/SGOT) 23, Alanine Aminotransferase (ALT/SGPT) 25, Alkaline Phosphatase 59, Total Protein 6.6, Albumin 3.7 Home Meds Active Children's Aspirin (Aspirin) 81 Mg Tab.chew 81 Mg PO DAILY Metoprolol Succinate 50 Mg Tab.er.24h 50 Mg PO DAILY Atorvastatin Calcium 80 Mg Tablet 80 Mg PO HS Clopidogrel (Clopidogrel Bisulfate) 75 Mg Tablet 75 Mg PO DAILY Reported Lisinopril-Hctz 10-12.5 mg Tab (Lisinopril/Hydrochlorothiazide) 10 Mg-12.5 Mg Tablet Assessment/Pt Instructions PCP 1 week Discharge Planning: <30 minutes discharge planning Discharge Physical Examination Vital Signs Vital Signs Date Time Temp Pulse Resp B/P (MAP) Pulse Ox O2 Delivery O2 Flow Rate FiO2 05/12/22 08:00 Room Air 05/12/22 07:57 36.2 76 14 146/93 (110) 97 05/11/22 16:45 0.00 0.00 05/10/22 21:58 21 General Appearance: No Apparent Distress, WD/WN Respiratory: Lungs Clear Cardiovascular: Regular Rate, Rhythm Allergies: Coded Allergies: No Known Drug Allergies (Unverified , 05/10/22) Discharge Summary Date of Admission May 10, 2022 at 21:06 Date of Discharge Discharge Date: May 12, 2022 Admission Diagnosis Assessment: NSTEMI Smoker Hyperlipidemia Chronic pain syndrome Plan: Cardiology consult appreciated Cardiac cath Discharge Diagnosis Assessment: NSTEMI Smoker Hyperlipidemia Chronic pain syndrome Plan: Cardiology consult appreciated Cardiac cath (1) NSTEMI (non-ST elevated myocardial infarction) NEHA HOGUE DO May 12, 2022 12:17
--- NOTE | 2022-05-12 14:26 | Progress Note - Cardiology ---
Cardiology SOAP Progress Note Subjective: No cp or palp or syncope or shortness of breath No groin or leg discomfort or discoloration No focal weakness No swelling Objective: I&O/Vital Signs 05/12/22 05/12/22 05/12/22 05/12/22 04:00 05:57 07:00 07:57 Temp 36.5 36.2 Pulse 61 100 76 Resp 14 14 B/P (MAP) 167/102 (123) 146/93 (110) Pulse Ox 96 97 O2 Delivery Room Air Room Air 05/12/22 05/12/22 05/12/22 08:00 12:00 13:00 Temp 36.5 Pulse 86 72 Resp 13 B/P (MAP) 164/84 (110) Pulse Ox 97 O2 Delivery Room Air Room Air 05/12/22 00:00 Intake Total 240 ml Output Total 502 ml Balance -262 ml Condition: DP/PT pulses palpable Device Insertion Site: without hematoma Bruising: mild bruising Constitutional: AAO x 3, well-developed, well-nourished Respiratory: No accessory muscle use; other (good, bilateral air entry) Cardiovascular: regular rate-rhythm, S1 and S2, systolic murmur (soft JEFF at card base) Gastrointestional: No tender; soft; No guarding, No rebound; audible bowel sounds Extremities: No clubbing, No cyanosis, No significant edema Neurologic/Psychiatric: oriented x 3, other (mvoes all limbs equally) Skin: normal color, warm/dry; No rash on exposed areas, No ulcerations on exposed areas Results/Procedures: Labs Laboratory Tests 05/12/22 05:01: White Blood Count 12.7H, Red Blood Count 5.27, Hemoglobin 15.6, Hematocrit 46, Mean Corpuscular Volume 88, Mean Corpuscular Hemoglobin 30, Mean Corpuscular Hemoglobin Concent 34, Red Cell Distribution Width 13.0, Platelet Count 224, Mean Platelet Volume 11.5, Immature Granulocyte % (Auto) 1, Neutrophils (%) (Auto) 67, Lymphocytes (%) (Auto) 20, Monocytes (%) (Auto) 10, Eosinophils (%) (Auto) 2, Basophils (%) (Auto) 1, Neutrophils # (Auto) 8.6H, Lymphocytes # (Auto) 2.5, Monocytes # (Auto) 1.3H, Eosinophils # (Auto) 0.2, Basophils # (Auto) 0.1, Immature Granulocyte # (Auto) 0.1, Sodium Level 139, Potassium Level 3.9, Chloride Level 111H, Carbon Dioxide Level 19L, Anion Gap 9, Blood Urea Nitrogen 19H, Creatinine 0.95, Estimat Glomerular Filtration Rate 93, BUN/Creatinine Ratio 20, Glucose Level 93, Calcium Level 9.0, Corrected Calcium 9.2, Total Bilirubin 0.7, Aspartate Amino Transf (AST/SGOT) 23, Alanine Aminotransferase (ALT/SGPT) 25, Alkaline Phosphatase 59, Total Protein 6.6, Albumin 3.7 Laboratory Tests 05/10/22 20:15 05/11/22 05:07 05/12/22 05:01 A/P: Assessment: Ac NSTEMI and unstable angina - Card cath on05/11/22: LMCA ok, LAD D1 95% -> 0% with Skypoint 2.25 x 12 stent, LAD D2 90% -> 0% with Skypoing 2.25 x 23 stent, LCX ok, RCA 80% mid -> 0% with Skypoint 4 x 12, RCA dominant, distal PL of RCA with mod diffuse disease, LVEF normal - Echo on 05/12/22: Mod conc LVH, LVEF 60-65%, PASP WNL Chronic smoker of cigarettes Strong fam h/o premature CAD Plan: * I had a long and detailed discussion with him regarding his cath findings and interventions undertaken and further treatment plan * Advised compliance with meds * Advised to quit smoking immediately and completely * Advised outpt f/u and f/u on labs * He understands all of the above MAGALY ALFORD MD FACP [facility] May 12, 2022 14:26
== END 2022-05-12 15:05 | disposition home or self-care (01) | DRG 247 ==
LOC: EDUNIT# 19:57 → ER 19:59 → CSD 21:06
PROVIDERS: ADMIT Internal Medicine; ATTEND Internal Medicine
PROC: 027136Z Dilation of Coronary Artery, Two Arteries with Three Drug-eluting Intraluminal Devices, Percutaneous Approach (ICD-10-PCS; principal; 2022-05-11)
PROC: 4A023N7 Measurement of Cardiac Sampling and Pressure, Left Heart, Percutaneous Approach (ICD-10-PCS; 2022-05-11)
PROC: B2111ZZ Fluoroscopy of Multiple Coronary Arteries using Low Osmolar Contrast (ICD-10-PCS; 2022-05-11)
PROC: B2151ZZ Fluoroscopy of Left Heart using Low Osmolar Contrast (ICD-10-PCS; 2022-05-11)
DX: I21.4 Non-ST elevation (NSTEMI) myocardial infarction (principal); F17.210 Nicotine dependence, cigarettes, uncomplicated; E78.5 Hyperlipidemia, unspecified; G89.4 Chronic pain syndrome; Z20.822 Contact with and (suspected) exposure to COVID-19; I25.10 Atherosclerotic heart disease of native coronary artery without angina pectoris
CPT/HCPCS: 36415; 71045; 80053; 80061; 83690; 83735; 84484; 85025; 85610; 85730; 87636; 93005; 93041; 93306